=== PATIENT | male | born 1960 | race Caucasian/White ===

== ENCOUNTER 2021-02-18 14:13 | Inpatient (IN) | payer OTHER, SELFPAY ==
[~2021-02-18] VITALS: Ht 195.6 cm; Wt 84.1 kg
[2021-02-18] MEDS ORDERED: LORazepam 1 MG TABLET PO ONE (15:00)
[2021-02-18 15:37] VITALS: BP_SYST 158
[2021-02-18 16:11] LABS: BASOPHILS % (AUTO) 0.4 % (0.0-2.0); EOSINOPHILS % (AUTO) 0.2 % (0.0-4.0); HEMATOCRIT 40.5 % (36-54); HEMOGLOBIN 13.7 g/dL (14.0-18.0); LYMPHOCYTES # (AUTO) 0.8 K/uL (1.0-5.5); LYMPHOCYTES % (AUTO) 10.5 % (20.5-51.5); MEAN CORPUSCULAR HEMOGLOBIN 31 pg (27-31); MEAN CORPUSCULAR HGB CONC 34 % (32-36); MEAN CORPUSCULAR VOLUME 91 fL (79.0-98.0); MONOCYTES # (AUTO) 0.8 K/uL (0.0-1.0); MONOCYTES % (AUTO) 9.5 % (1.7-9.3); NEUTROPHILS # (AUTO) 6.4 K/uL (1.8-7.7); NEUTROPHILS % (AUTO) 79.4 % (40.0-70.0); PLATELET COUNT (AUTO) 217 K/uL (130-430); RED BLOOD CELL COUNT(AUTO) 4.45 MIL/uL (4.2-6.2); RED CELL DISTRIBUTION WIDTH 13.1 % (9.0-15.0)
[2021-02-18 17:02] LABS: CALCIUM 9.1 mg/dL (8.4-11.0); CREATININE 0.95 mg/dL (0.55-1.30); POTASSIUM 4.5 mmol/L (3.5-5.1)
[2021-02-18 17:13] LABS: INR 0.9 (0.80-1.20); PROTHROMBIN TIME 9.7 SECS (9.5-12.5)
[2021-02-18 17:18] LABS: ALBUMIN 3.8 g/dL (3.4-4.8); FREE T4 (FREE THYROXINE) 0.9 ng/dl (0.8-1.5); THYROID STIMULATING HORMONE 1.2 uIu/mL (0.36-3.74); TOTAL BILIRUBIN 0.2 mg/dL (0.0-1.0)
[2021-02-18] MEDS ORDERED: ASPIRIN 325 MG TABLET (ECOTRIN) PO ONE (17:30)
[2021-02-18] MEDS ORDERED: METOPROLOL SUCCINATE 25 MG TAB.SR.24H (TOPROL XL) PO SCH (20:45)
[2021-02-18] MEDS ORDERED: ENOXAPARIN SODIUM 100 MG/ML SYRINGE SUBCUT ONE (20:45)
[2021-02-18] MEDS ORDERED: TOPIRAMATE 25 MG TABLET(TOPAMAX) ONE (20:57)
[2021-02-18] MEDS ORDERED: METOPROLOL SUCCINATE 25 MG TAB.SR.24H (TOPROL XL) PO ONE (21:02)
[2021-02-18] MEDS ORDERED: LORazepam 2 MG/ML VIAL IVP PRN (21:30)
[2021-02-18] MEDS ORDERED: NITROGLYCERIN 0.4 MG TAB.SUBL SL PRN (21:30)
[2021-02-18] MEDS ORDERED: *LOVENOX 1MG/KG Q12H/PHARMACY XX ONE (21:30)
[2021-02-18] MEDS ORDERED: DEXTROSE 50% JECT 50 ML DISP.SYRIN IVP PRN (21:45)
[2021-02-18 22:46] LABS: CHOLESTEROL 229 mg/dL (<200); HDL CHOLESTEROL 78 mg/dL (>45); LDL CHOLESTEROL 135 mg/dL (<100); TRIGLYCERIDES 37 mg/dL (30-150)
[2021-02-19 02:02] VITALS: BP_SYST 147
[2021-02-19] MEDS: INSULIN REGULAR, HUMAN 100 UNITS/ML, 10 ML VIAL (humuLIN R) SUBCUT PRN ×3 (06:36→23:25)
[2021-02-19 08:00] VITALS: BP_SYST 139
[2021-02-19] MEDS ORDERED: METOPROLOL TARTRATE 25 MG TABLET PO SCH (09:00)
[2021-02-19] MEDS ORDERED: ASPIRIN 325 MG TABLET PO SCH (09:00)
[2021-02-19] MEDS ORDERED: ENOXAPARIN SODIUM 100 MG/ML SYRINGE SUBCUT SCH (09:00)
[2021-02-19] MEDS ORDERED: METOPROLOL SUCCINATE 50 MG TAB.SR.24H (TOPROL XL) PO ONE (10:45)
[2021-02-19] MEDS: METOPROLOL SUCCINATE 50 MG TAB.SR.24H (TOPROL XL) PO SCH (10:56)
[2021-02-19 12:00] VITALS: BP_SYST 126
[2021-02-19 20:00] VITALS: BP_SYST 146
[2021-02-20 00:30] VITALS: BP_SYST 133
[2021-02-20] MEDS: INSULIN REGULAR, HUMAN 100 UNITS/ML, 10 ML VIAL (humuLIN R) SUBCUT PRN (05:55)
[2021-02-20 08:30] VITALS: BP_SYST 137
[2021-02-20] MEDS ORDERED: ASPIRIN 81 MG TAB.CHEW PO SCH (09:00)
[2021-02-20] MEDS ORDERED: ATORVASTATIN 20 MG TABLET PO SCH (09:00)
[2021-02-20] MEDS: METOPROLOL SUCCINATE 50 MG TAB.SR.24H (TOPROL XL) PO SCH (09:30)
[2021-02-20] MEDS ORDERED: METO50TA7 PO (11:15)
[2021-02-20] MEDS ORDERED: LISI20TA30 PO (11:29)
[2021-02-20] MEDS ORDERED: METF-518 PO (11:29)
[2021-02-20] MEDS ORDERED: MAGN400T10 PO (11:30)
[2021-02-20] MEDS ORDERED: VITD2000 PO (11:31)
[2021-02-20 12:22] VITALS: BP_SYST 117
[2021-02-20 13:19] VITALS: BP_SYST 133
[2021-02-20] MEDS ORDERED: metFORMIN HCL 500 MG TABLET PO SCH (18:00)
== END 2021-02-20 14:10 | disposition home or self-care (01) | DRG 281 ==
LOC: SED 14:13 → STU 20:36
PROVIDERS: ADMIT Internal Medicine Hospice and Palliative Medicine; ATTEND Internal Medicine Hospice and Palliative Medicine
DX: I21.A1 Myocardial infarction type 2 (principal); I47.1 Supraventricular tachycardia; E11.9 Type 2 diabetes mellitus without complications; Z20.822 Contact with and (suspected) exposure to COVID-19; F41.0 Panic disorder [episodic paroxysmal anxiety]; I10 Essential (primary) hypertension; Z88.0 Allergy status to penicillin
CPT/HCPCS: 36415; 71045; 80053; 80061; 82550; 82962; 83036; 83880; 84439; 84443; 84484; 85025; 85610-TC; 85730-TC; 93005; 93306; 96372; 99285; G0378; J1650; J1815

== ENCOUNTER 2021-06-14 12:22 | Emergency (ER) | payer OTHER, SELFPAY ==
[~2021-06-14] VITALS: Ht 195.6 cm; Wt 86.2 kg
[2021-06-14 12:22] VITALS: BP_SYST 179
[~2021-06-14 12:22] MED LIST: MAGN400T10 PO; METF-518 PO; METO50TA7 PO; VITD2000 PO
--- NOTE | 2021-06-14 12:22 | NUR ---
BROUGHT BACK TO BED #8 AND TRIAGED. REPORT GIVEN TO HERNESTO
--- NOTE | 2021-06-14 12:25 | NUR ---
Pt AAO and ambulatory reporting and acute onset of chest pain at home. Pt initially thought he was having a panic attack but when the pain continued, he became concerned. Pt described his pain as pounding and it has since resolved. Pt reports that the pain lasted for 15 minutes and when he arrived here it stopped.
--- NOTE | 2021-06-14 12:25 | NUR ---
Dr. Gong at bedside to assess.
--- NOTE | 2021-06-14 12:40 | NUR ---
# 20 gauge angiocath placed to left AC. Use of asceptic technique. Opsite placed over site. Blood return noted. Blood for lab drawn from site. Flushed with 10 cc of normal saline. No evidence of infiltration noted. Patient tolerated well.
--- NOTE | 2021-06-14 12:45 | NUR ---
Portable CXR done at bedside.
[2021-06-14 13:03] LABS: BASOPHILS # (AUTO) 0.1 K/uL (0.0-0.2); BASOPHILS % (AUTO) 1.8 % (0.0-2.0); EOSINOPHILS # (AUTO) 0.1 K/uL (0.0-0.4); EOSINOPHILS % (AUTO) 1.3 % (0.0-4.0); HEMATOCRIT 41.8 % (36-54); HEMOGLOBIN 13.8 g/dL (14.0-18.0); LYMPHOCYTES # (AUTO) 1.4 K/uL (1.0-5.5); LYMPHOCYTES % (AUTO) 26.6 % (20.5-51.5); MEAN CORPUSCULAR HEMOGLOBIN 30 pg (27-31); MEAN CORPUSCULAR HGB CONC 33 % (32-36); MEAN CORPUSCULAR VOLUME 90 fL (79.0-98.0); MONOCYTES # (AUTO) 0.5 K/uL (0.0-1.0); MONOCYTES % (AUTO) 9.7 % (1.7-9.3); NEUTROPHILS # (AUTO) 3.1 K/uL (1.8-7.7); NEUTROPHILS % (AUTO) 60.6 % (40.0-70.0); PLATELET COUNT (AUTO) 192 K/uL (130-430); RED BLOOD CELL COUNT(AUTO) 4.67 MIL/uL (4.2-6.2); RED CELL DISTRIBUTION WIDTH 13.3 % (9.0-15.0); WHITE BLOOD COUNT (AUTO) 5.1 K/uL (4.8-10.8)
[2021-06-14 13:17] LABS: CALCIUM 9.3 mg/dL (8.4-11.0); CREATININE 0.88 mg/dL (0.55-1.30); POTASSIUM 3.9 mmol/L (3.5-5.1)
[2021-06-14 13:23] LABS: ALBUMIN 4.2 g/dL (3.4-4.8); TOTAL BILIRUBIN 0.2 mg/dL (0.0-1.0)
[2021-06-14] MEDS ORDERED: ESCI5TAB16 PO (13:33)
[2021-06-14] MEDS ORDERED: ISOS30TA85 PO (13:33)
[2021-06-14] MEDS ORDERED: ROSU20TA2 PO (13:33)
--- NOTE | 2021-06-14 13:38 | NUR ---
Report given to CESIA Cruz who will assume care.
--- NOTE | 2021-06-14 14:28 | NUR ---
Patient resting in bed; in no acute distress. Patient reports no pain at this time. VSS. Will continue to monitor.
[2021-06-14 14:55] VITALS: BP_SYST 177
--- NOTE | 2021-06-14 14:59 | NUR ---
Patient to be transferred to [facility]. Is being transferred due to higher level of care. Receiving facility has accepting physician and available space. ER physician has signed transfer form. Patient or responsible republican has agreed to transfer and signed form. Patient belongings inventoried and will be sent with patient. Copy of nursing notes, lab reports, EKG, Physicians Orders and X-rays to be sent with patient. Report called to Jax CALLAWAY at receiving facility. Receiving physician is Dr Tabor. [facility] has been called for transfer. ETA is [id number].
== END 2021-06-14 14:59 | disposition short-term general hospital (02) ==
LOC: SED 12:22
DX: R07.89 Other chest pain (principal); R00.2 Palpitations; I10 Essential (primary) hypertension; E11.9 Type 2 diabetes mellitus without complications; Z88.0 Allergy status to penicillin; Z79.899 Other long term (current) drug therapy
CPT/HCPCS: 36415; 71045; 80053; 82962; 84484; 85025; 93005; 99285